=== PATIENT | female | born 1990 | race African-American/Black ===

== ENCOUNTER 2017-02-12 12:50 | Emergency (ER) | payer MEDICAID | END 2017-02-12 14:01 | disposition home or self-care (01) | LOC: D.ER 12:50 | DX: S05.01XA Injury of conjunctiva and corneal abrasion without foreign body, right eye, initial encounter (principal); X58.XXXA Exposure to other specified factors, initial encounter; Y93.89 Activity, other specified; Y92.89 Other specified places as the place of occurrence of the external cause ==

== ENCOUNTER 2018-02-08 00:37 | Emergency (ER) | payer SELFPAY ==
[~2018-02-08] VITALS: Ht 149.9 cm; Wt 54.0 kg
[2018-02-08 01:13] VITALS: Ht 149.9 cm; Wt 54.0 kg
[2018-02-08] MEDS ORDERED: TORADOL10 MG PO (02:02)
[2018-02-08 02:29] VITALS: BP 138/92
== END 2018-02-08 02:30 | disposition home or self-care (01) ==
LOC: D.ER 00:37
DX: M65.4 Radial styloid tenosynovitis [de Quervain] (principal)

== ENCOUNTER 2018-05-12 16:57 | Emergency (ER) | payer SELFPAY ==
[~2018-05-12] VITALS: Ht 149.9 cm; Wt 59.1 kg
[~2018-05-12 16:57] MED LIST: TORADOL10 MG PO
[2018-05-12 16:59] VITALS: Ht 149.9 cm; Wt 59.1 kg
[2018-05-12] MEDS ORDERED: TORADOL10 MG PO (20:13)
[2018-05-12] MEDS ORDERED: ATIVAN1 MG PO (20:13)
[2018-05-12 20:20] VITALS: BP 100/76
== END 2018-05-12 20:20 | disposition home or self-care (01) ==
LOC: D.ER 16:57
DX: M65.4 Radial styloid tenosynovitis [de Quervain] (principal); F17.200 Nicotine dependence, unspecified, uncomplicated

== ENCOUNTER 2018-10-18 09:22 | Emergency (ER) | payer SELFPAY ==
[~2018-10-18] VITALS: Ht 149.9 cm; Wt 54.5 kg
[~2018-10-18 09:22] MED LIST changes: +ATIVAN1 MG PO
[2018-10-18 09:32] VITALS: BP 130/64; Ht 149.9 cm; Wt 54.5 kg
[2018-10-18 10:10] LABS: HCG URINE NEGATIVE (NEGATIVE)
[2018-10-18 10:26] LABS: APPEARANCE HAZY (CLEAR); BILIRUBIN NEGATIVE (NEGATIVE); COLOR YELLOW (YELLOW); GLUCOSE NEGATIVE (NEGATIVE); KETONE NEGATIVE (NEGATIVE); NITRITE NEGATIVE (NEGATIVE); PROTEIN NEGATIVE (NEGATIVE); SPECIFIC GRAVITY 1.005 (1.005-1.020); UROBILINOGEN NORMAL (NORMAL)
[2018-10-18 10:27] LABS: BACTERIA MODERATE /hpf (NONE SEEN); EPITHELIAL CELLS 0-5 /hpf (0-5); MUCUS <1+ /lpf (NONE SEEN); RED CELLS - URINE 0-5 /hpf (0-5); WHITE CELLS - URINE OCC /hpf (0-5)
[2018-10-18] MEDS ORDERED: FLAGYL500 MG PO (11:00)
== END 2018-10-18 11:30 | disposition home or self-care (01) ==
LOC: D.ER 09:22
PROVIDERS: Family Medicine
DX: A59.01 Trichomonal vulvovaginitis (principal); F17.200 Nicotine dependence, unspecified, uncomplicated

== ENCOUNTER 2018-12-30 01:08 | Emergency (ER) | payer SELFPAY ==
[~2018-12-30 01:08] MED LIST changes: +FLAGYL500 MG PO
[2018-12-30 01:16] VITALS: BP 135/96; BMI 27.5
[2018-12-30 02:03] LABS: APPEARANCE CLEAR (CLEAR); BILIRUBIN NEGATIVE (NEGATIVE); COLOR YELLOW (YELLOW); GLUCOSE NEGATIVE (NEGATIVE); KETONE NEGATIVE (NEGATIVE); NITRITE NEGATIVE (NEGATIVE); PROTEIN NEGATIVE (NEGATIVE); SPECIFIC GRAVITY 1.015 (1.005-1.020); UROBILINOGEN NORMAL (NORMAL)
[2018-12-30] MEDS ORDERED: FLAGYL500 MG PO (02:32)
[2019-01-03 16:11] LABS: CHLAMYDIA TRACHOMATIS, NAA Negative (Negative)
== END 2018-12-30 03:10 | disposition home or self-care (01) ==
LOC: D.ER 01:08
PROVIDERS: Family Medicine
DX: L91.0 Hypertrophic scar (principal); Z20.2 Contact with and (suspected) exposure to infections with a predominantly sexual mode of transmission

== ENCOUNTER 2019-07-09 08:42 | Emergency (ER) | payer SELFPAY ==
[~2019-07-09] VITALS: Ht 149.9 cm; Wt 62.7 kg
[2019-07-09 08:46] VITALS: Ht 149.9 cm; Wt 62.7 kg
[2019-07-09] MEDS ORDERED: FLAGYL500 MG PO (09:05)
[2019-07-09 09:06] LABS: APPEARANCE HAZY (CLEAR); BILIRUBIN NEGATIVE (NEGATIVE); COLOR YELLOW (YELLOW); GLUCOSE NEGATIVE (NEGATIVE); KETONE NEGATIVE (NEGATIVE); NITRITE NEGATIVE (NEGATIVE); PROTEIN TRACE mg/dL (NEGATIVE); UROBILINOGEN NORMAL (NORMAL)
[2019-07-09 09:11] LABS: BACTERIA FEW /hpf (NEGATIVE); EPITHELIAL CELLS 0-5 /hpf (0-5); MUCUS >1+ /lpf (NONE SEEN); RED CELLS - URINE 0-5 /hpf (0-5); WHITE CELLS - URINE 0-5 /hpf (NEGATIVE)
[2019-07-09] MEDS ORDERED: PROZAC20 MG (09:17)
[2019-07-09] MEDS ORDERED: PROZAC20 MG PO (09:18)
[2019-07-09 09:39] LABS: HCG URINE NEGATIVE (NEGATIVE)
[2019-07-09 09:54] VITALS: BP 123/86
== END 2019-07-09 09:46 | disposition home or self-care (01) ==
LOC: D.ER 08:42
PROVIDERS: Emergency Medicine
DX: N76.0 Acute vaginitis (principal); F32.9 Major depressive disorder, single episode, unspecified

== ENCOUNTER → 2020-03-26 | Emergency (ER) | payer SELFPAY ==
[~2020-03-26] VITALS: Ht 149.9 cm; Wt 68.2 kg
[~2020-03-26] MED LIST changes: +DIFLUCAN150 MG PO; +MEDROL DOSE PACK4 MG PO; +PROAIR HFA8.5 G1 INH; +PROZAC20 MG; +PROZAC20 MG PO; +ZITHROMAX500 MG PO
[2020-03-26 11:42] VITALS: BP 134/86; Ht 149.9 cm; Wt 68.2 kg
[2020-03-26 13:18] LABS: HCG URINE NEGATIVE (NEGATIVE)
[2020-03-26 13:41] LABS: BASOPHILS 0.5 % (0-2); EOSINOPHILS 1.4 % (0-7); HEMOGLOBIN 12.1 g/dL (12-16); IMMATURE GRANULOCYTES 0.1 % (0-5); LYMPHOCYTES 23.4 % (15-50); MCH 27.6 pg (26.0-34.0); MCHC 31.8 g/dL (31.0-37.0); MCV 86.8 fL (80.0-100.0); MONOCYTES 7.1 % (2-11); NEUTROPHILS 67.5 % (40-80); RBC 4.38 10x6/uL (4.00-5.40); RDW 13.8 % (11.5-14.5); WBC 8.5 10x3/uL (4.8-10.8)
[2020-03-26 13:48] LABS: PLATELET COUNT 278 10x3/uL (130-400)
[2020-03-26 13:50] LABS: CALC OSMOLALITY 270 mosm/kg (275-300); CALCIUM 8.6 mg/dL (8.5-10.1); CHLORIDE - SERUM 104 mmol/L (98-107); CREATININE - SERUM 0.8 mg/dL (0.6-1.3); GLUCOSE 84 mg/dL (74-106); POTASSIUM - SERUM 3.9 mmol/L (3.5-5.1); SODIUM 135 mmol/L (136-145); UREA NITROGEN 19 mg/dL (7-18); eGFR NON AFRICAN AMERICAN 89 mL/min (90-120)
[2020-03-26 14:07] LABS: ALBUMIN 3.3 g/dL (3.4-5.0); ALKALINE PHOSPHATASE 78 U/L (30-120); ALT (SGPT) 36 U/L (10-68); BILIRUBIN - TOTAL 0.09 mg/dL (0.2-1.3); CKMB 14.7 U/L (0.0-3.6); CREATINE KINASE 1233 UL (21-215); PRO BNP 58 pg/mL (0-125); PROTEIN - SERUM 7.7 g/dL (6.4-8.2); TROPONIN-I < 0.017 ng/mL (0.000-0.060)
[2020-03-26 14:31] LABS: BILIRUBIN NEGATIVE (NEGATIVE); KETONE NEGATIVE (NEGATIVE); NITRITE NEGATIVE (NEGATIVE); UROBILINOGEN NORMAL mg/dL (< 2)
[2020-03-26 14:35] LABS: BACTERIA MODERATE HPF (NONE SEEN); EPITHELIAL CELLS 0-5 /hpf (0-5); WHITE CELLS - URINE 0-5 HPF (0-4)
== END | disposition home or self-care (01) ==
LOC: D.ER 11:27
PROVIDERS: Emergency Medicine
DX: J45.909 Unspecified asthma, uncomplicated (principal); E86.0 Dehydration; Z72.0 Tobacco use; R05 Cough

== ENCOUNTER 2020-10-23 08:44 | Outpatient (CLI) | payer MEDICAID ==
[2020-10-23] MEDS ORDERED: ZOLOFT25 MG PO (09:05)
[2020-10-23] MEDS ORDERED: PRENAVITE1 TAB PO (09:05)
[2020-10-23 10:50] LABS: BASOPHILS 0.1 % (0-2); EOSINOPHILS 0.6 % (0-7); HEMOGLOBIN 10.4 g/dL (12-16); IMMATURE GRANULOCYTES 0.5 % (0-5); LYMPHOCYTE ABS# 2.15 10x3/uL (1.18-3.74); LYMPHOCYTES 19.4 % (15-50); MCH 27.7 pg (26.0-34.0); MCHC 32.5 g/dL (31.0-37.0); MCV 85.3 fL (80.0-100.0); MEAN PLATELET VOLUME 11.6 fL (7.4-10.4); MONOCYTES 6.4 % (2-11); NEUTROPHIL ABS# 8.06 10x3/uL (1.56-6.13); PLATELET COUNT 291 10x3/uL (130-400); RBC 3.75 10x6/uL (4.00-5.40); RDW 13.7 % (11.5-14.5); WBC 11.1 10x3/uL (4.8-10.8)
[2020-10-23 11:28] LABS: UDS - AMPHET NEGATIVE QUAL (NEGATIVE); UDS - BARB NEGATIVE QUAL (NEGATIVE); UDS - BENZO NEGATIVE QUAL (NEGATIVE); UDS - COCAINE NEGATIVE QUAL (NEGATIVE); UDS - OPIATE NEGATIVE QUAL (NEGATIVE); UDS - PCP NEGATIVE QUAL (NEGATIVE); UDS - THC POSITIVE QUAL (NEGATIVE)
[2020-10-23 11:46] LABS: BILIRUBIN NEGATIVE (NEGATIVE); KETONE NEGATIVE (NEGATIVE); NITRITE NEGATIVE (NEGATIVE); UROBILINOGEN NORMAL mg/dL (< 2)
[2020-10-23 11:47] LABS: BACTERIA MODERATE HPF (NONE SEEN); SQUAMOUS EPITHELIAL 0-5 HPF (0-4); WHITE CELLS - URINE OCC HPF (0-4)
[2020-10-23 13:07] VITALS: BMI 32.4
== END 2020-10-23 12:30 | disposition home or self-care (01) ==
LOC: D.LDO 08:44
PROVIDERS: ATTEND Obstetrics & Gynecology
DX: O35.9XX0 Maternal care for (suspected) fetal abnormality and damage, unspecified, not applicable or unspecified (principal)

== ENCOUNTER 2020-12-03 07:00 | Outpatient (CLI) | payer MEDICAID ==
[~2020-12-03 07:00] MED LIST changes: +PRENAVITE1 TAB PO; +ZOLOFT25 MG PO
--- NOTE | 2020-12-03 08:07 | NUR ---
DR. COTTRELL NOTIFIED AND REVIEWED PT'S BEHAVIOR AND ASSESSMENT RESULTS. PT IS A LOW RISK PER DR. COTTRELL. DR. COTTRELL STATED TO GIVE RESOURCES TO PT AT TIME OF DISCHARGE. NO FURTHER ORDERS AT THIS TIME. RESOURCES REVIEWED WITH PT AND SHE VERBALIZED UNDERSTANDING. PT DENIES SI AT THIS TIME.
== END 2020-12-03 08:29 | disposition left against medical advice (07) ==
LOC: D.LDO 07:00
PROVIDERS: ATTEND Obstetrics & Gynecology
DX: O35.9XX0 Maternal care for (suspected) fetal abnormality and damage, unspecified, not applicable or unspecified (principal)

== ENCOUNTER → 2020-12-05 02:53 | Outpatient (CLI) | payer MEDICAID | END | disposition home or self-care (01) | LOC: D.LDO 02:53 | PROVIDERS: ATTEND Obstetrics & Gynecology | DX: O47.9 False labor, unspecified (principal) ==

== ENCOUNTER 2020-12-09 11:23 | Outpatient (CLI) | payer MEDICAID | END 2020-12-09 11:55 | disposition home or self-care (01) | LOC: D.LDO 11:23 | PROVIDERS: ATTEND Obstetrics & Gynecology | DX: O47.9 False labor, unspecified (principal) ==

== ENCOUNTER 2020-12-21 05:05 | Outpatient (CLI) | payer MEDICAID ==
[2020-12-21 07:06] LABS: UDS - AMPHET NEGATIVE QUAL (NEGATIVE); UDS - BARB NEGATIVE QUAL (NEGATIVE); UDS - BENZO NEGATIVE QUAL (NEGATIVE); UDS - COCAINE NEGATIVE QUAL (NEGATIVE); UDS - OPIATE NEGATIVE QUAL (NEGATIVE); UDS - PCP NEGATIVE QUAL (NEGATIVE); UDS - THC POSITIVE QUAL (NEGATIVE)
[2020-12-21 07:49] LABS: BILIRUBIN NEGATIVE (NEGATIVE); KETONE NEGATIVE mg/dL (< 1+); NITRITE NEGATIVE (NEGATIVE); SQUAMOUS EPITHELIAL 2 HPF (0-4); UROBILINOGEN NORMAL mg/dL (< 2); WHITE CELLS - URINE 7 HPF (0-4)
[2020-12-23 11:07] VITALS: BMI 37.5
[2020-12-25] MEDS ORDERED: HYDROCODON-ACE1 EA10 PO (14:25)
[2020-12-25] MEDS ORDERED: IBUPROFEN600 MG PO (14:25)
== END 2020-12-21 09:27 | disposition left against medical advice (07) ==
LOC: D.LDO 05:05
PROVIDERS: ATTEND Student in an Organized Health Care Education/Training Program
DX: O47.9 False labor, unspecified (principal)